=== PATIENT | female | born 1940 | race Caucasian/White ===

== ENCOUNTER 2018-06-21 18:03 | Inpatient (IN) | payer MEDICARE ==
[~2018-06-21] VITALS: Ht 162.6 cm; Wt 59.0 kg
[~2018-06-21 18:03] MED LIST: AMLO-150 PO; APIX2.5T PO; ATOR40TA78 PO; B12/1TAB PO; CARV6.252 PO; FURO-93 PO; GLIP5TAB10 PO; HYDR-3341 PO; LISI-167 PO; METO5TAB2 PO; OMEP-110 PO; ONDA4TAB7 PO; PANT40TA5 PO
[2018-06-21 18:57] LABS: BASOPHILS # (AUTO) 0.02 x10^3/uL (0-0.1); BASOPHILS % (AUTO) 0 % (0-1); EOSINOPHILS # (AUTO) 0.36 x10^3/uL (0-0.4); EOSINOPHILS % (AUTO) 4 % (1-7); LYMPHOCYTES # (AUTO) 1.62 x10^3/uL (1-3.4); LYMPHOCYTES % (AUTO) 16 % (22-44); MD NO; MEAN CORPUSCULAR HEMOGLOBIN 30.2 pg (27.0-34.8); MEAN CORPUSCULAR HGB CONC 33.3 g/dL (32.4-35.8); MEAN CORPUSCULAR VOLUME 90.6 fL (80-100); MEAN PLATELET VOLUME 6.9 fL (7.4-10.4); MONOCYTES # (AUTO) 0.65 x10^3/uL (0.2-0.8); MONOCYTES % (AUTO) 7 % (2-9); NEUTROPHILS # (AUTO) 7.22 x10^3/uL (1.8-6.8); NEUTROPHILS % (AUTO) 73 % (42-75); PLATELET COUNT 346 x10^3/uL (130-400); RED BLOOD COUNT 3.24 x10^6/uL (3.82-5.3); RED CELL DISTRIBUTION WIDTH 16.3 % (9.6-15.2)
[2018-06-21 19:07] LABS: INTERNATIONAL NORMALIZED RATIO 1.03 (0.93-1.1); PROTHROMBIN TIME 10.8 Seconds (9.6-11.5)
[2018-06-21 19:08] LABS: ALBUMIN 3.5 g/dL (3.4-5.0); ANION GAP 9 mmol/L (5-15); CALCIUM 8.6 mg/dL (8.5-10.1); CHLORIDE 104 mmol/L (98-107)
[2018-06-21 19:14] LABS: ALANINE AMINOTRANSFERASE 15 U/L (12-78); ALKALINE PHOSPHATASE 73 U/L (45-117); BILIRUBIN,TOTAL 0.7 mg/dL (0.2-1.0); CREATININE 2.28 mg/dL (0.55-1.02); TROPONIN I < 0.015 ng/mL (0.000-0.045)
--- NOTE | 2018-06-21 19:38 | NUR ---
PT UP TO RESTROOM WITHOUT O2, HAD EPISODE OF SEVERE SOB/DIPHORESIS, PT BACK TO ROOM AND PLACED ON MONITOR - RA 81%. PT ON 4L MD NADINE NOTIFIED. REPEAT EKG AND VQ SCAN ORDRED
--- NOTE | 2018-06-21 20:27 | NUR ---
NO IV LABETALOL IN HOUSE, NOTIFIED, PT BP STILL 220'S/100'S, PER MD START NICARDIPINE GTT, MOVE TO T2
[2018-06-21] MEDS ORDERED: LABETALOL 5 MG/ML SYRINGE IVPush ONE (20:30)
--- NOTE | 2018-06-21 20:54 | NUR ---
RECEIVED REPORT FROM HAO HILLIARD. PT TO V/Q SCAN. DR. NOE AWARE AND OK IF TEST IS ONLY 20 MINUTES PRIOR TO PT STARTING NICARDIPINE DRIP. WILL CHECK BP CUFF PT HAS SMALL ADULT CUFF IN PLACE ON PT'S RETURN..
--- NOTE | 2018-06-21 21:02 | NUR ---
V/Q tech called and he reports test should take 20 minutes.
--- NOTE | 2018-06-21 21:22 | NUR ---
PT BACK FROM V/Q SCAN.
--- NOTE | 2018-06-21 21:33 | NUR ---
MANUAL BP DONE ON RETURN FROM [facility]. MANUAL BP WAS 190/68. DR. NOE AWARE AND WE ARE HOLDING OFF ON NICARDIPINE DRIP FOR NOW.
[2018-06-21] MEDS ORDERED: FUROSEMIDE 20 MG/2 ML IV ONE (22:00)
--- NOTE | 2018-06-21 22:02 | NUR ---
REPORT TO TIP RN AT BEDSIDE. BP NOW 197/77. DR. NOE AT BEDSIDE FOR ADMIT AND NICARDIPINE STILL NOT NEEDED.
--- NOTE | 2018-06-21 22:08 | NUR ---
BEDSIDE REPORT FROM ARMINDA MCKEON. PT SITTING UP IN [place] NOTED. PWD. SPEAKING IN FULL SENTENCES. ERP AT BEDSIDE TO DISCUSS POC (ADMIT) AND PT DEMONSTRATES UNDERSTANDING. PER ERP, HOLD NICARDIPINE AT THIS TIME.
[2018-06-21] MEDS ORDERED: FUROSEMIDE 20 MG/2 ML ONE (22:10)
--- NOTE | 2018-06-21 22:21 | NUR ---
PT MEDICATED PER EMAR. HOSPITALIST AT BEDSIDE.
--- NOTE | 2018-06-21 22:39 | NUR ---
REPORT TO ARMINDA GOMEZ ON TELE
[2018-06-21 22:51] VITALS: BP 177/69
[2018-06-22 02:53] VITALS: BP 181/61
[2018-06-22] MEDS: hydrALAzine 20 MG/ML, 1ML IV PRN (02:57)
[2018-06-22 04:11] VITALS: BP 166/63
[2018-06-22 04:57] LABS: BASOPHILS # (AUTO) 0.06 x10^3/uL (0-0.1); BASOPHILS % (AUTO) 1 % (0-1); EOSINOPHILS % (AUTO) 2 % (1-7); LYMPHOCYTES # (AUTO) 1.55 x10^3/uL (1-3.4); LYMPHOCYTES % (AUTO) 19 % (22-44); MD NO; MEAN CORPUSCULAR HEMOGLOBIN 29.9 pg (27.0-34.8); MEAN CORPUSCULAR HGB CONC 33.2 g/dL (32.4-35.8); MONOCYTES # (AUTO) 0.55 x10^3/uL (0.2-0.8); MONOCYTES % (AUTO) 7 % (2-9); NEUTROPHILS % (AUTO) 71 % (42-75); PLATELET COUNT 333 x10^3/uL (130-400); RED BLOOD COUNT 3.11 x10^6/uL (3.82-5.3); RED CELL DISTRIBUTION WIDTH 16.3 % (9.6-15.2)
[2018-06-22 05:09] LABS: ANION GAP 8 mmol/L (5-15); CALCIUM 8.6 mg/dL (8.5-10.1); CHLORIDE 107 mmol/L (98-107)
[2018-06-22 05:17] LABS: CREATININE 2.22 mg/dL (0.55-1.02); TROPONIN I 0.047 ng/mL (0.000-0.045)
[2018-06-22 05:27] LABS: HEMOGLOBIN A1C 5.1 % (4.2-6.3)
[2018-06-22] MEDS: FUROSEMIDE 20 MG TABLET PO SCH (08:11)
[2018-06-22 08:23] VITALS: BP 178/63
[2018-06-22] MEDS: CARVEDILOL 12.5 MG TABLET PO SCH ×2 (08:25→21:25)
[2018-06-22] MEDS ORDERED: FUROSEMIDE 20 MG/2 ML IV ONE (08:30)
[2018-06-22] MEDS ORDERED: SODIUM CHLORIDE NASAL SPRAY 45ML BOTTLE NAS PRN (11:30)
[2018-06-22 11:45] LABS: TROPONIN I 0.028 ng/mL (0.000-0.045)
[2018-06-22] MEDS: ACETAMINOPHEN 325 MG TABLET PO PRN ×2 (12:58→21:31)
[2018-06-22 15:00] VITALS: BP 170/71
[2018-06-22] MEDS: INSULIN LISPRO 100 UNITS/ML, PEN SQ-INSULIN SCH ×2 (16:00→21:19)
[2018-06-22] MEDS: PANTOPRAZOLE 20MG TABLET PO SCH (16:46)
[2018-06-22 21:19] VITALS: BP 172/55
[2018-06-22] MEDS: ATORVASTATIN 40 MG TABLET PO SCH (21:25)
[2018-06-23] VITALS (7 sets, daily range): BP systolic 159–199; BP diastolic 61–80
[2018-06-23 05:29] LABS: CHLORIDE 107 mmol/L (98-107)
[2018-06-23 05:44] LABS: ALBUMIN 3.1 g/dL (3.4-5.0); ANION GAP 9 mmol/L (5-15); CALCIUM 8.6 mg/dL (8.5-10.1); CREATININE 2.44 mg/dL (0.55-1.02)
[2018-06-23] MEDS: PANTOPRAZOLE 20MG TABLET PO SCH ×2 (06:06→15:46)
[2018-06-23] MEDS ORDERED: POTASSIUM CHLORIDE 20 MEQ TAB.ER.PRT PO ONE (06:30)
[2018-06-23] MEDS: INSULIN LISPRO 100 UNITS/ML, PEN SQ-INSULIN SCH ×4 (07:00→19:45)
[2018-06-23] MEDS: FUROSEMIDE 20 MG TABLET PO SCH (08:59)
[2018-06-23] MEDS: CARVEDILOL 12.5 MG TABLET PO SCH ×2 (08:59→20:20)
[2018-06-23] MEDS ORDERED: PHARMACY MAY ADJ FOR RENAL FX MC PRN (15:00)
[2018-06-23] MEDS ORDERED: hydrOXyzine 10 MG/5 ML ORAL SOL PO PRN (15:00)
[2018-06-23] MEDS: hydrALAzine 20 MG/ML, 1ML IV PRN (18:46)
[2018-06-23] MEDS: ATORVASTATIN 40 MG TABLET PO SCH (20:19)
[2018-06-23] MEDS ORDERED: CARVEDILOL 12.5 MG TABLET PO ONE (23:30)
[2018-06-24 01:42] VITALS: BP 183/65
[2018-06-24] MEDS: hydrALAzine 20 MG/ML, 1ML IV PRN (01:53)
[2018-06-24 03:00] VITALS: BP 168/59
[2018-06-24] MEDS: ACETAMINOPHEN 325 MG TABLET PO PRN (03:30)
[2018-06-24 05:12] LABS: ANION GAP 8 mmol/L (5-15); CALCIUM 8.5 mg/dL (8.5-10.1); CHLORIDE 108 mmol/L (98-107); CREATININE 2.42 mg/dL (0.55-1.02)
[2018-06-24] MEDS: PANTOPRAZOLE 20MG TABLET PO SCH (06:37)
[2018-06-24] MEDS: INSULIN LISPRO 100 UNITS/ML, PEN SQ-INSULIN SCH ×2 (07:00→10:18)
[2018-06-24 07:55] VITALS: BP 165/63
[2018-06-24] MEDS: FUROSEMIDE 20 MG TABLET PO SCH (08:01)
[2018-06-24] MEDS ORDERED: CARVEDILOL 25 MG TABLET PO SCH (09:00)
[2018-06-24 11:15] VITALS: BP 153/65
[2018-06-24] MEDS ORDERED: CARV25TA12 PO (11:34)
[2018-06-24] MEDS ORDERED: HYDR-3343 PO (11:34)
[2018-06-24] MEDS ORDERED: PANT20TA3 PO (11:34)
[2018-06-24] MEDS ORDERED: HYDR25TA11 PO (11:34)
[2018-06-24] MEDS ORDERED: SODI44SP NAS (11:34)
== END 2018-06-24 13:16 | disposition home health service (06) | DRG 291 ==
LOC: ED 20:06 → 5SO 22:04
PROVIDERS: ADMIT Internal Medicine; ATTEND Internal Medicine
DX: I13.0 Hypertensive heart and chronic kidney disease with heart failure and stage 1 through stage 4 chronic kidney disease, or unspecified chronic kidney disease (principal); I50.31 Acute diastolic (congestive) heart failure; J96.01 Acute respiratory failure with hypoxia; I16.1 Hypertensive emergency; N18.4 Chronic kidney disease, stage 4 (severe); D64.9 Anemia, unspecified; H26.9 Unspecified cataract; R45.86 Emotional lability; R53.81 Other malaise; F41.9 Anxiety disorder, unspecified; H35.30 Unspecified macular degeneration; H54.8 Legal blindness, as defined in USA; I48.0 Paroxysmal atrial fibrillation; J44.9 Chronic obstructive pulmonary disease, unspecified; R73.03 Prediabetes; Z79.84 Long term (current) use of oral hypoglycemic drugs; Z63.4 Disappearance and death of family member; Z79.899 Other long term (current) drug therapy; Z86.010 Personal history of colon polyps
CPT/HCPCS: 36415; 71045; 78582; 80048; 80053; 82040; 82962; 83036; 83880; 84443; 84484; 85025; 85610; 85730; 93005; G0378; A9540; A9558; C9898; J0360; J1815; J1940; Q0177